=== PATIENT | female | born 1935 | race Hispanic/Latino ===

== ENCOUNTER → 2019-12-21 16:09 | Outpatient (CLI) | payer MEDICARE, SELFPAY ==
--- NOTE | ~2019-12-21 | XR_ITS ---
XR hip LT min 2V DATE: 12/21/2019 16:30 INDICATION: Left hip pain TECHNIQUE: AP and lateral views of the left hip COMPARISON: 12/24/2014 left hip FINDINGS: Mild osteopenia. No fracture or dislocation, avascular necrosis or bone destruction. The le ft hip joint space is well preserved. The pubic symphysis and sacroiliac joints are intact. IMPRESSION: Mild osteopenia; no fracture or dislocation or bone destruction of the left hip Reviewed, dictated and finalized at location A.
== END ==
PROVIDERS: PCP Family Medicine; Visit Provider Family Medicine
DX: M85.852 Other specified disorders of bone density and structure, left thigh (principal)
CPT/HCPCS: 73502